=== PATIENT | female | born 1955 | race Caucasian/White ===

== ENCOUNTER 2019-09-03 00:11 | Emergency (ER) | payer MEDICARE ==
[~2019-09-03] VITALS: Ht 165.1 cm; Wt 72.6 kg
[2019-09-03] MEDS ORDERED: AUGMENTIN 875-1 EACH PO (00:42)
[2019-09-03 00:54] VITALS: BP 126/72
== END 2019-09-03 00:55 | disposition home or self-care (01) ==
LOC: FSED 00:11
DX: N30.00 Acute cystitis without hematuria (principal)
CPT/HCPCS: 81003; 99283

== ENCOUNTER 2020-10-05 19:47 | Inpatient (IN) | payer BC, MEDICARE, OTHER ==
[~2020-10-05] VITALS: Ht 165.1 cm; Wt 72.6 kg
[~2020-10-05 19:47] MED LIST: AUGMENTIN 875-1 EACH PO
[2020-10-05] MEDS ORDERED: ONDANSETRON HCL INJ 2MG/ML 2ML 2 MG/ML VIAL IV STA (20:05)
[2020-10-05] MEDS ORDERED: MORPHINE SULFATE INJ 4 MG/ML INJ 1ML IV ONE (20:15)
[2020-10-05] MEDS ORDERED: SODIUM CHLORIDE 0.9% 1000ML 1,000 ML IV STA (20:49)
[2020-10-05] MEDS ORDERED: SODIUM CHLORIDE 0.9% 1000ML 1,000 ML ONE (20:55)
[2020-10-05] MEDS ORDERED: ONDANSETRON HCL INJ 2MG/ML 2ML 2 MG/ML VIAL ONE (20:55)
[2020-10-05] MEDS ORDERED: MORPHINE SULFATE INJ 4 MG/ML INJ 1ML ONE (21:39)
[2020-10-05] MEDS ORDERED: PIPER-TAZ 3.375 GM / NS 50ML IV ONE (22:15)
[2020-10-05] MEDS ORDERED: MORPHINE SULFATE INJ 4 MG/ML INJ 1ML IV PRN (22:30)
[2020-10-06] VITALS (10 sets, daily range): BP systolic 94–127; BP diastolic 45–91
[2020-10-06] MEDS ORDERED: SODIUM CHLORIDE 0.9% 1000ML 1,000 ML ONE (00:24)
[2020-10-06] MEDS ORDERED: PIPER-TAZ 3.375 GM 50 ML ONE (00:24)
[2020-10-06] MEDS: SODIUM CHLORIDE 0.9% 1000ML 1,000 ML IV SCH ×2 (00:25→05:35)
[2020-10-06] MEDS ORDERED: ACETAMINOPHEN 1000 MG/100 ML IV PRN ×2 (02:45→15:45)
[2020-10-06] MEDS ORDERED: ACETAMINOPHEN 1000 MG/100 ML 100 ML IV ONE (03:04)
[2020-10-06] MEDS ORDERED: PIPER-TAZ 3.375 GM / NS 50ML IV SCH (05:00)
[2020-10-06] MEDS: PIPERACILLIN/TAZOBAC 3.375 GM in SODIUM CHLORIDE 0.9% 50ML 50 ML IV SCH ×4 (05:35→23:55)
[2020-10-06] MEDS ORDERED: POTASSIUM CHLORIDE 20 MEQ in SODIUM CHLORIDE 0.9% 1000ML 1,000 ML IV SCH (08:37)
[2020-10-06 08:43] LABS: BASOPHILS % 0.5 % (0.0-1.0); HEMOGLOBIN 12.1 g/dL (12.0-16.0); LYMPHOCYTES # (AUTO) 0.7 (1.0-3.2); LYMPHOCYTES % 11.7 % (18.0-39.1); MEAN CORPUSCULAR HEMOGLOBIN 31.8 pg (28-32); MEAN CORPUSCULAR HGB CONC 32.7 g/dL (31-35); MEAN CORPUSCULAR VOLUME 97.4 fL (81-99); MONOCYTES # (AUTO) 0.4 (0.2-0.8); MONOCYTES % 7.3 % (4.4-11.3); NEUTROPHILS # (AUTO) 4.5 (2.1-6.9); NEUTROPHILS % 80.3 % (38.7-80.0); PLATELET COUNT 100 x10e3/uL (140-360); RED CELL DISTRIBUTION WIDTH 13.2 % (11.7-14.4)
[2020-10-06 09:00] LABS: ANION GAP 13.5 mmol/L (8-16); BLOOD UREA NITROGEN 11 mg/dL (7-26); BUN/CREATININE RATIO 17 (6-25); CALCIUM 7.7 mg/dL (8.4-10.2); CARBON DIOXIDE 22 mmol/L (22-29); CHLORIDE 109 mmol/L (98-107); CREATININE, SERUM 0.63 mg/dL (0.57-1.11); EST GLOMERULAR FILTRATION RATE > 60 ML/MIN (60-); GLUCOSE 127 mg/dL (74-118); POTASSIUM 3.5 mmol/L (3.5-5.1); SODIUM 141 mmol/L (136-145)
[2020-10-06] MEDS ORDERED: KETOROLAC TROMETHAMINE 30 MG/ML VIAL IV NR (10:30)
[2020-10-06] MEDS: KCL 20MEQ/.9 SOD CHL 1,000 ML IV SCH ×3 (11:07→22:52)
[2020-10-06] MEDS ORDERED: FENTANYL CITRATE/PF 100MCG/2 ML INJ ONE (12:56)
[2020-10-06] MEDS ORDERED: BUPIVACAINE HCL 0.5% INJ 30 ML VIAL INJ ONE (13:40)
[2020-10-06] MEDS ORDERED: ROCURONIUM BROMIDE 10 MG/ML 5ML VIAL IV ONE (13:43)
[2020-10-06] MEDS ORDERED: DESFLURANE 240 ML BTL INH ONE (13:43)
[2020-10-06] MEDS ORDERED: PROPOFOL IV EMULSION 10 MG/ML 20 ML VIAL ONE (13:43)
[2020-10-06] MEDS ORDERED: LIDOCAINE HCL 2% LOCAL INJ 5 ML SDV VIAL INJ ONE (13:43)
[2020-10-06] MEDS ORDERED: DEXAMETHASONE SOD PHOS INJ 4 MG/ML VIAL ONE (13:43)
[2020-10-06] MEDS ORDERED: ONDANSETRON HCL INJ 2MG/ML 2ML 2 MG/ML VIAL ONE (13:43)
[2020-10-06] MEDS ORDERED: LIDOCAINE HCL 2% JELLY 5 ML TUBE ONE (13:43)
[2020-10-06] MEDS ORDERED: SUGAMMADEX SODIUM 200 MG/2 ML VIAL IV ONE (14:14)
[2020-10-06] MEDS: PANTOPRAZOLE 40 MG 10ML VIAL IV SCH (17:02)
[2020-10-06] MEDS: ONDANSETRON HCL INJ 2MG/ML 2ML 2 MG/ML VIAL IV PRN ×2 (17:03→23:23)
[2020-10-06] MEDS: HYDROMORPHONE 1MG/1ML INJ IV PRN ×2 (17:03→23:36)
[2020-10-07] VITALS (8 sets, daily range): BP systolic 111–128; BP diastolic 51–75
[2020-10-07] MEDS: ONDANSETRON HCL INJ 2MG/ML 2ML 2 MG/ML VIAL IV PRN (04:06)
[2020-10-07] MEDS: KETOROLAC TROMETHAMINE 30 MG/ML VIAL IV PRN ×2 (04:33→10:36)
[2020-10-07] MEDS: PIPERACILLIN/TAZOBAC 3.375 GM in SODIUM CHLORIDE 0.9% 50ML 50 ML IV SCH ×3 (06:52→17:13)
[2020-10-07] MEDS: KCL 20MEQ/.9 SOD CHL 1,000 ML IV SCH ×2 (06:53→21:51)
[2020-10-07 07:00] LABS: BASOPHILS % 0.2 % (0.0-1.0); HEMATOCRIT 34.8 % (34.2-44.1); HEMOGLOBIN 11.1 g/dL (12.0-16.0); LYMPHOCYTES # (AUTO) 0.7 (1.0-3.2); LYMPHOCYTES % 12.1 % (18.0-39.1); MEAN CORPUSCULAR HGB CONC 31.9 g/dL (31-35); MEAN CORPUSCULAR VOLUME 97.2 fL (81-99); MONOCYTES # (AUTO) 0.6 (0.2-0.8); MONOCYTES % 9.8 % (4.4-11.3); NEUTROPHILS # (AUTO) 4.3 (2.1-6.9); NEUTROPHILS % 77.5 % (38.7-80.0); PLATELET COUNT 110 x10e3/uL (140-360); RED BLOOD COUNT 3.58 x10e6/uL (3.6-5.1); RED CELL DISTRIBUTION WIDTH 13.2 % (11.7-14.4)
[2020-10-07 07:40] LABS: ANION GAP 11.4 mmol/L (8-16); BLOOD UREA NITROGEN 13 mg/dL (7-26); BUN/CREATININE RATIO 22 (6-25); CALCIUM 7.9 mg/dL (8.4-10.2); CARBON DIOXIDE 22 mmol/L (22-29); CHLORIDE 111 mmol/L (98-107); CREATININE, SERUM 0.58 mg/dL (0.57-1.11); EST GLOMERULAR FILTRATION RATE > 60 ML/MIN (60-); GLUCOSE 98 mg/dL (74-118); POTASSIUM 4.4 mmol/L (3.5-5.1); SODIUM 140 mmol/L (136-145)
[2020-10-07] MEDS ORDERED: HYDROCODONE/APAP 7.5MG-325MG 1 EA TAB PO PRN (08:00)
[2020-10-07] MEDS: DIPHENHYDRAMINE HCL 25 MG CAP PO PRN ×2 (10:40→21:52)
[2020-10-07] MEDS: PANTOPRAZOLE 40 MG 10ML VIAL IV SCH (17:09)
[2020-10-07] MEDS: TRAMADOL HCL 50 MG TAB PO PRN (21:52)
[2020-10-08] MEDS: PIPERACILLIN/TAZOBAC 3.375 GM in SODIUM CHLORIDE 0.9% 50ML 50 ML IV SCH ×2 (00:01→05:09)
[2020-10-08 00:46] VITALS: BP 123/65
[2020-10-08] MEDS: TRAMADOL HCL 50 MG TAB PO PRN (05:45)
[2020-10-08 06:17] VITALS: BP 123/65
[2020-10-08 07:52] VITALS: BP 100/69
[2020-10-08 08:26] VITALS: BP 100/69
[2020-10-08] MEDS ORDERED: ULTRAM 50MG50 MG PO (10:30)
[2020-10-08] MEDS ORDERED: LEVOFLOXACIN500 MG PO (10:30)
== END 2020-10-08 11:05 | disposition home or self-care (01) | DRG 343 ==
LOC: FSED 20:15 → ERHOLD 22:25 → MED/SURG 10-06 01:25
PROVIDERS: ADMIT Surgery; ATTEND Surgery
PROC: 0DBJ4ZX Excision of Appendix, Percutaneous Endoscopic Approach, Diagnostic (ICD-10-PCS; principal; 2020-10-06 14:10)
DX: K35.80 Unspecified acute appendicitis (principal); Z20.822 Contact with and (suspected) exposure to COVID-19
CPT/HCPCS: 36415; 74176; 80048; 85025; 88304; 99284; C1766; J1100; J1170; J1885; J2001; J2270; J2405; J2543; J3010; J7030; U0002